=== PATIENT | female | born 1995 | race Caucasian/White ===

== ENCOUNTER 2018-11-06 17:33 | Emergency (ER) | payer BC ==
[~2018-11-06] VITALS: Ht 165.1 cm; Wt 70.5 kg
[2018-11-06 17:39] VITALS: BP 140/79; TEMP 98.8
[2018-11-06] MEDS ORDERED: ZYRTEC 10MG10 MG PO (18:59)
[2018-11-06] MEDS ORDERED: ZITHROMAX Z PA250 MG PO (19:03)
[2018-11-06 19:27] VITALS: PULSE 85
== END 2018-11-06 19:27 | disposition home or self-care (01) ==
LOC: COL.ER 17:33
DX: J20.9 Acute bronchitis, unspecified (principal)